=== PATIENT | female | born 1940 | race Caucasian/White ===

== ENCOUNTER 2016-08-17 09:40 | Outpatient (CLI) | payer MEDICARE ==
[~2016-08-17] VITALS: Ht 165.1 cm; Wt 44.5 kg
--- NOTE | ~2016-08-17 | HEMODYNAMI ---
PATIENT:JOSE ESQUIVEL MEDICAL RECORD: [id number] : 40 LOCATION:[facility] ADMISSION DATE: 08/17/16 Generatedon:08/17/201612:42 Patient name: JOSE ESQUIVEL Patient #: [id number] SSN: : 1940 Date of study: 08/17/2016 Page: Of Hemodynamic Procedure Report Patient Data Patient Demographics Procedure consent was obtained First Name: JOSE Gender: Female Last Name: SIERRA : 1940 Patient #: [id number] Age: 75 year(s) Race: Unknown Additional ID: [id number] Contact details [address]: [address] [place] [address] State: [place] City: [place] Zip code: [address] Admission Admission Data Admission Date: 08/17/2016 Admission Time: 9:40 Procedure Procedure Types Cath Procedure Diagnostic Procedure LHC LHC w/Coronaries FFR/IVUS Intra-Coronary IVUS Initial Miscellaneous Procedures Moderate Sedation up to 15 minutes Procedure Description Procedure Date Procedure Date: 08/17/2016 Procedure Start Time: 12:27 Procedure End Time: 12:42 Procedure Staff Name Function Darwin Scott MD Performing Physician Karlee Onofre RN Nurse Porfirio Estevez RT Monitor Nathanael López RT Scrub Procedure Data Cath Procedure Fluoroscopy Diagnostic fluoroscopy Total fluoroscopy Time: 2.4 time: 2.4 min min Diagnostic fluoroscopy Total fluoroscopy dose: 114 dose: 114 mGy mGy Contrast Material Contrast Material Type Amount (ml) Isovue 300 67 Entry Location Entry Primary Successful Side Size Upsize Upsize Entry Closure Succes sful Closure Location (Fr) 1 (Fr) 2 (Fr) Remarks Device Remarks Femoral Right 5 Fr 6 Fr Exoseal artery Short Estimated blood loss: 10 ml Diagnostic catheters Device Type Used For End Catheter Placement Cordis 5Fr Pigtail Procedure Catheter (MP) Cordis 5Fr JL 4.0 Procedure Catheter (MP) Cordis 5Fr 3DRC Catheter Procedure (MP) Procedure Complications No complications Procedure Medications Medication Administration Route Dosage Oxygen NC 2 l/min Heparin Flush Bag added to field 2 bags (1000units/500ml NS) Lidocaine 1% added to field 20 Versed I.V. 1 mg Fentanyl I.V. 50 mcg Versed I.V. 0.5 mg Fentanyl I.V. 25 mcg Versed I.V. 0.5 mg Fentanyl I.V. 25 mcg Hemodynamics Rest Heart Rate: 54 (bpm) Snapshots Pre Cath Intra NCS Post Cath Vital Signs Time Heart Resp SPO2 etCO2 [id number] NIBP (mmHg) Rhythm Pain Sedation Rate (ipm) (%) (mmHg) (mmHg) Status Level (bpm) 12:18:14 91 15 98 0 0 176/95(145) NSR 0 (11) 10(A) , No pain 12:22:26 82 17 97 0 0 174/97(123) NSR 0 (11) 10(A) , No pain 12:26:42 98 15 100 0 0 137/88(104) NSR 0 (11) 10(A) , No pain 12:30:52 61 15 99 0 0 125/67(100) NSR 0 (11) 9(A) , No pain 12:34:56 82 17 98 0 0 107/79(92) NSR 0 (11) 9(A) , No pain 12:36:46 72 16 96 0 0 111/66(81) NSR 0 (11) 9(A) , No pain 12:38:25 62 16 98 0 0 117/69(88) NSR 0 (11) 9(A) , No pain 12:42:23 81 8 98 0 0 110/83(94) NSR 0 (11) 9(A) , No pain Medications Time Medication Route Dose Verified Delivered Reason Notes Effec tiveness by by 12:17:26 Oxygen NC 2 Darwin Karlee Per l/min Tyler Onofre RN physician 12:17:35 Heparin Flush added 2 Darwin Granados used for Bag to bags Tyler Scott MD procedure (1000units/500ml field NS) 12:17:43 Lidocaine 1% added 20ml Darwin Granados used for to vial Tyler Scott MD procedure field 12:25:33 Versed I.V. 1 mg Darwin Karlee for Tyler Onofre RN sedation 12:25:41 Fentanyl I.V. 50 Darwin Karlee for mcg Tyler Onofre RN sedation 12:27:33 Versed I.V. 0.5 Darwin Ritterecca for mg Tyler Onofre RN sedation 12:27:41 Fentanyl I.V. 25 Darwin Ritterecca for mcg Tyler Oonfre RN sedation 12:29:36 Versed I.V. 0.5 Darwin Ritterecca for mg Tyler Onofre RN sedation 12:29:44 Fentanyl I.V. 25 Darwin Castorenaca for mcg Tyler Onofre RN sedation Procedure Log Time Note 11:50:22 Porfirio Estevez RT(R) sent for patient. Start room use. 11:54:02 Diagnostic Cath status Elective 11:54:04 Time tracking: Regular hours 11:54:09 Plan of Care:Hemodynamics will remain stable., Cardiac rhythm will remain stable., Comfort level will be maintained., Respiratory function will remain adequate., Patient/ family verbilizes understanding of procedure., Procedure tolerated without complication., Recovers from procedure without complications.. 12:12:06 Patient received from Pre/Post Procedure Room to [facility] 1 Alert and oriented. Tansferred to table in Supine position. 12:12:17 Warm blankets applied, and robert hugger turned on for patient comfort. 12:12:21 Correct patient and procedure confirmed by team. 12:12:25 Signed procedure consent form obtained from patient. 12:12:28 ECG and BP/O2 sat monitors applied to patient. 12:17:13 Vital chart was started 12:17:26 Oxygen 2 l/min NC was administered by Karlee Onofre RN; Per physician; 12:17:35 Heparin Flush Bag (1000units/500ml NS) 2 bags added to field was administered by Darwin Scott MD; used for procedure; 12:17:43 Lidocaine 1% 20ml vial added to field was administered by Darwin Scott MD; used for procedure; 12:23:08 Baseline sample Acquired. 12:23:14 Rhythm: sinus rhythm 12:23:15 Full Disclosure recording started 12:24:08 H&P Date Dictated: 08/09/2016 Within 30 days and on chart., H&P Addendum completed by physician on day of procedure. (MUST COMPLETE FOR ALL OUTPATIENTS). 12:24:09 Pre-procedure instructions explained to patient. 12:24:10 Pre-op teaching completed and patient verbalized understanding. 12:24:11 Family in waiting room. 12:24:12 Patient NPO since Midnight. 12:24:14 Is the patient allergic to Iodine/contrast media? No. 12:24:17 Is patient on blood thinner?No 12:24:19 Patient diabetic? No. 12:24:21 Patient not . Patient is over age 55. 12:24:24 Previous problem with sedation/anesthesia? No ? 12:24:26 Snore? No 12:24:28 Sleep apnea? No 12:24:34 Deviated septum? No 12:24:34 Opens mouth fully? Yes 12:24:35 Sticks out tongue? Yes 12:24:38 Airway obstruction? No ? 12:24:40 Dentures? Yes IN 12:24:44 Pre procedure: right dorsailis pedis pulse 1+ Palpable, but thready & weak; easily obliterated 12:24:54 Rt radial too small. 12:25:04 IV patent on arrival in left forearm with 0.9% NaCl at [facility]. 12:25:06 Lab results completed and on chart. 12:25:10 Right groin area was prepped with chlora-prep and draped in sterile fashion 12:25:12 Alarms reviewed by R. N. 12:25:12 Sharps counted by scrub and verified by R.N. 12:25:15 --------ALL STOP TIME OUT------ 12:25:15 Final Timeout: patient, procedure, and site verified with staff and physician. All members of the team are in agreement. 12:25:18 Right groin site verified by team. 12:25:21 Physical assessment completed. ASA score P 2 - A patient with mild systemic disease as per Darwin Scott MD. 12:25:23 Sedation plan: IV Moderate Sedation Versed, Fentanyl 12::33 Versed 1 mg I.V. was administered by Karlee Onofre RN; for sedation; 12::41 Fentanyl 50 mcg I.V. was administered by Karlee Onofre RN; for sedation; 12:27:02 Use device set Femoral Dx 12:27:04 Tegaderm 4 x 4 opened to sterile field. 12:27:04 Acist Hand Control opened to sterile field. 12:27:05 Acist Manifold opened to sterile field. 12:27:06 Acist Syringe opened to sterile field. 12:: Bag Decanter opened to sterile field. 12:: Medline Cath Pack opened to sterile field. 12:: Terumo 5Fr [place] Sheath opened to sterile field. 12:27:08 [place] 260cm J .035 wire opened to sterile field. 12::09 Diagnostic Infinity 5Fr Multipack catheter opened to sterile field. 12::14 Procedure started. 12::19 Local anesthetic to right femoral artery with Lidocaine 2% by Darwin Scott MD.INITIAL ACCESS ONLY 12::33 Versed 0.5 mg I.V. was administered by Karlee Onofre RN; for sedation; 12::41 Fentanyl 25 mcg I.V. was administered by Karlee Onofre RN; for sedation; 12::48 A 5 Fr sheath was inserted into the Right Femoral artery 12::53 A Cordis 5Fr Pigtail Catheter (MP) was advanced over the wire and used for Procedure. 12::54 Zero performed for pressure channel P1 12::17 LV angiography performed. 12::18 LV gram done using DIAZ 12:: EF : 65 % 12:: Injector settings: Ml/sec: 7, Volume: 15, 12::35 Catheter removed. 12::40 A Cordis 5Fr JL 4.0 Catheter (MP) was advanced over the wire and used for Procedure. 12::44 Baseline sample Acquired. 12:: Baseline sample Acquired. 12:: LCA angiography performed. 12::36 Versed 0.5 mg I.V. was administered by Karlee Onofre RN; for sedation; ::44 Fentanyl 25 mcg I.V. was administered by Karlee Onofre RN; for sedation; 12:30:08 Catheter removed. 12::13 A Cordis 5Fr 3DRC Catheter (MP) was advanced over the wire and used for Procedure. 12:31:00 RCA angiography performed. 12:31:03 Catheter removed. 12:31:04 Terumo 6Fr [place] Sheath opened to sterile field. 12:: Merit BasixCompak Inflation Kit opened to sterile field. 12:31:05 Giles Whisper J 300cm 0.014 guide wire opened to sterile field. 12:31:06 [place] Grace Eagleye IVUS Catheter opened to sterile field. 12:31:15 Sheath upsized to a 6 Fr Short. 12:32:41 6 Fr XBLAD 3.5 guide catheter was inserted over the wire 12:32:57 Cordis 6FR XBLAD 3.5 guide catheter opened to sterile field. 12:34:00 Whisper wire advanced. 12:34:02 Wire advanced across lesion. 12:34:14 IVUS catheter advanced over wire. 12:34:25 IVUS pass to LAD lesion performed. 12:34:35 IVUS catheter removed over wire. 12:34:44 Wire removed. 12:34:44 Guide catheter removed. 12:35:47 Cordis 6Fr Exoseal opened to sterile field. 12:35:57 Sheath removed intact; hemostasis achieved with Exoseal to the Right Femoral artery. 12:36:00 Procedure ended.(Physican Out) 12:36:15 Fluoroscopy time 02.40 minutes. 12:36:20 Fluoroscopy dose: 114 mGy 12:36:20 Flurop Dose total: 114 12:36:24 Contrast amount:Isovue 300 67ml. 12:36:26 Sharps counted by scrub and verified by R.N. 12:36:28 Insertion/operative site no bleeding no hematoma. 12:36:30 Post-op/insertion site Right Femoral artery dressed using a 4 x 4 and Tegaderm. 12:36:31 Post Procedure Pulses reassessed and unchanged 12:36:34 Post-procedure physical assessment completed. ASA score P 2 - A patient with mild systemic disease as per Darwin Scott MD. 12:36:37 Post procedure rhythm: unchanged. 12:36:41 Estimated blood loss: 10 ml 12:36:43 Post procedure instruction explained to patient.Patient verbalizes understanding. 12:36:43 Patient needs reinforcement of post procedure teaching. 12:36:50 Procedure type changed to Cath procedure, Diagnostic procedure, LHC, C w/Coronaries, FFR/IVUS, Intra-Coronary IVUS Initial, Miscellaneous Procedures, Moderate Sedation up to 15 minutes 12:36:51 Procedure and supply charges have been captured, reviewed, submitted and are correct. 12:36:54 Procedure Complication : No complications 12:41:59 Vital chart was stopped 12:42:00 See physician's report for complete and final results. 12:42:05 Report given to Pre/Post Procedure Room. 12:42:09 Patient transfered to Pre/Post Procedure Room with Stretcher. 12:42:17 Procedure ended. 12:42:17 Full Disclosure recording stopped 12:42:21 End room use (Document Last) Device Usage Item Name Manufacture Quantity Catalog Hospital Part Current Minimal L ot# / Number Charge Number Stock Stock Serial# Code Tegaderm 4 3M 1 [id number] [id number] 930055 5 x 4 Acist Hand Acist 1 27557 481133 096047 961912 5 Control [employer] Inc Acist Acist 1 59507 917016 137589 649932 5 Manifold [employer] Inc Acist Acist 1 52656 064528 051068 773528 20 Syringe Medical Systems MD [place]ingo Bag Microtek 1 2002S 797816 80647 159266 5 [employer] Medline Cardinal 1 [id number] 459119 72142 350591 5 Cath Pack Health Terumo 5Fr Terumo 1 [id number] 385034 623753 663090 [address] [place] 1 [id number] 472062 154296 860817 30 260cm J .035 wire Diagnostic Cardinal 1 [id number] 953893 47075 116030 30 Infinity Health 5Fr Multipack catheter Cordis 5Fr Cardinal 1 837840 5 Pigtail Health Catheter (MP) Cordis 5Fr Cardinal 1 679746 5 JL 4.0 Health Catheter (MP) Cordis 5Fr Cardinal 1 118486 5 3DRC Health Catheter (MP) Terumo 6Fr Terumo 1 [id number] 215913 201570 783499 40 [place] Sheath Merit Merit 1 VX7960 026305 665911 138791 15 BasixCompak Medical Inflation Kit Giles Giles 1 [id number] 334946 599534 091051 5 Whisper J Vascular 300cm 0.014 guide wire [place] 1 [id number] 778491 545008 820127 8 Grace Eagleye IVUS Catheter Cordis 6FR Cardinal 1 [id number] 591008 891941 029112 10 XBLAD 3.5 Health guide catheter Cordis 6Fr Cardinal 1 EX600 491140 974320 580493 10 [facility] Health Signature Audit [employer] Stage Time Signature Unsigned Intra-Procedure 08/17/2016 Porfirio Estevez 12:42:40 PM RT(R) Signatures Monitor : Porfirio Estevez RT Signature : Date : Time : [address] [address]
[2016-08-17] MEDS ORDERED: MORPHINE IMMEDI30 M1 PO (09:58)
[2016-08-17] MEDS ORDERED: OXYCODONE HCL5 MG PO (09:58)
[2016-08-17] MEDS ORDERED: LANOXIN125 MCG PO (09:59)
[2016-08-17] MEDS ORDERED: ISOSORBIDE MONO30 M1 PO (10:00)
[2016-08-17] MEDS ORDERED: RYTHMOL SR225 MG PO (10:00)
[2016-08-17] MEDS ORDERED: GABAPENTIN100 MG PO (10:01)
[2016-08-17] MEDS ORDERED: TOPROL XL25 MG PO (10:02)
[2016-08-17] MEDS ORDERED: LEVOTHYROXINE125 MCG PO (10:02)
[2016-08-17] MEDS ORDERED: MS CONTIN30 MG PO (10:03)
[2016-08-17] MEDS ORDERED: VALIUM 2 MG TAB2 MG PO (10:04)
[2016-08-17 10:10] VITALS: BP 145/75; Ht 165.1 cm; Wt 44.5 kg
[2016-08-17 10:58] LABS: CALC OSMOLALITY 281 mosm/kg (275-300); CALCIUM 8.6 mg/dL (8.5-10.1); CHLORIDE - SERUM 104 mmol/L (98-107); CREATININE - SERUM 0.7 mg/dL (0.6-1.3); GLUCOSE 91 mg/dL (74-106); POTASSIUM - SERUM 4.1 mmol/L (3.5-5.1); SODIUM 140 mmol/L (136-145); UREA NITROGEN 21 mg/dL (7-18); eGFR NON AFRICAN AMERICAN 86 mL/min (90-120)
[2016-08-17 11:21] LABS: BASOPHILS 0 % (0.0-2.0); EOSINOPHILS 1.9 % (0-7); HEMATOCRIT 37.4 % (36.0-48.0); HEMOGLOBIN 12.2 g/dL (12-16); IMMATURE GRANULOCYTES 0.3 % (0-5); LYMPHOCYTES 36.8 % (15-50); MCH 30.1 pg (26.0-34.0); MCHC 32.6 g/dL (31.0-37.0); MCV 92.3 fL (80.0-100.0); MEAN PLATELET VOLUME 10.6 fL (7.4-10.4); MONOCYTES 7.7 % (2-11); NEUTROPHILS 53.3 % (40-80); PLATELET COUNT 128 10x3/uL (130-400); RBC 4.05 10x6/uL (4.00-5.40); RDW 13.7 % (11.5-14.5); WBC 3.6 10x3/uL (4.8-10.8)
--- NOTE | 2016-08-17 13:14 | NUR ---
VSS WITH CHEST PAIN DENIED 6 FR EXOSEAL R/GROIN CDI NO BLEEDING NO HEMATOMA NOTED. WILL MONITOR
--- NOTE | 2016-08-19 10:19 | OP ---
PATIENT NAME: JOSE ESQUIVEL MEDICAL RECORD: [id number] :40 LOCATION:D.CAT ADMISSION DATE: SURGEON: KOBY CAMPOS MD DATE OF OPERATION: 08/17/2016 PROCEDURES: 1. Left heart catheterization. 2. Selective coronary angiography. 3. Left ventriculogram. 4. Intravascular ultrasound. INDICATION: Chest pain compatible with angina. PROCEDURE IN DETAIL: After informed consent was obtained and after detailed explanation of risks, benefits as well as alternative therapies, the patient elected to proceed with angiogram and heart catheterization. The right femoral area was prepped and draped in normal sterile fashion. The right femoral artery was cannulated via modified Seldinger technique with placement of 6-Kiswahili sheath. All catheters exchanged through this sheath. FINDINGS: Left ventriculogram was performed in standard 30-degree DIAZ view, reveals good cardiac wall motion throughout all segments. Overall ejection fraction estimated 60%. SELECTIVE CORONARY ANGIOGRAPHY: 1. Left main showed no significant angiographic disease. 2. Left anterior descending has mild irregularities, there is a questionable stenosis proximally; however, this revealed to be no greater than 20%. On intravascular ultrasound only a tortuous area of the vessel. 3. Left circumflex shows moderate irregularities, but no flow-limiting stenosis. 4. Right coronary small, nondominant with no significant stenosis. OVERALL IMPRESSION: No significant coronary disease is present. Chest pain is noncardiac in etiology. No further cardiac workup needs to be ascertained. 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
== END 2016-08-17 15:30 | disposition home or self-care (01) ==
LOC: D.CATH 09:40
PROVIDERS: Internal Medicine Interventional Cardiology
DX: I20.9 Angina pectoris, unspecified (principal); I10 Essential (primary) hypertension; I47.1 Supraventricular tachycardia